=== PATIENT | male | born 1975 | race Hispanic/Latino ===

== ENCOUNTER 2017-03-10 08:08 | Day surgery (SDC) | payer OTHER ==
[2017-03-07 16:39] VITALS: BP 118/68
[2017-03-07 16:45] LABS: BASOPHILS % (AUTO) 0.2 % (0.0-5.0); EOSINOPHILS % (AUTO) 1.3 % (0.0-8.0); HEMATOCRIT 42.7 % (42-54); LYMPHOCYTES % (AUTO) 23.6 % (21.0-51.0); MEAN CORPUSCULAR HEMOGLOBIN 28.5 pg (27.0-33.0); MEAN CORPUSCULAR HGB CONC 33.4 g/dL (32.0-36.0); MEAN CORPUSCULAR VOLUME 85.3 fL (79-99); MONOCYTES % (AUTO) 6.3 % (3.0-13.0); NEUTROPHILS % (AUTO) 68.6 % (40.0-77.0); PLATELET COUNT (AUTO) 268 K/uL (130-400); RED CELL DISTRIBUTION WIDTH 13.2 % (11.0-15.5)
[2017-03-07 16:53] LABS: CREATININE 1.1 mg/dL (0.5-1.5); POTASSIUM 3.9 mmol/L (3.5-5.1)
[~2017-03-10] VITALS: Ht 165.1 cm; Wt 137.0 kg
[2017-03-10] VITALS (15 sets, daily range): BP systolic 117–148; BP diastolic 56–89
[~2017-03-10 08:08] MED LIST: LISI10TA7 PO; METF500T6 PO; TRAZ-147 PO
[2017-03-10] MEDS ORDERED: WATER FOR INJECTION,STERILE 20 ML VIAL ONE (09:14)
[2017-03-10] MEDS ORDERED: SODIUM CHLORIDE 0.9% 1000ML 1,000 ML IV ONE (09:15)
[2017-03-10] MEDS: CEFAZOLIN SODIUM 1 GM VIAL ONE ×2 (09:41→10:00)
[2017-03-10] MEDS ORDERED: PROPOFOL 10 MG/ML 20ML VIAL IV ONE (09:57)
[2017-03-10] MEDS ORDERED: SUCCINYLCHOLINE 200MG/10ML SYR ONE (09:57)
[2017-03-10] MEDS ORDERED: NEOSTIGMINE METHYLSULFATE 1MG/ML IV ONE (09:57)
[2017-03-10] MEDS ORDERED: MIDAZOLAM HCL 1 MG/ML 2ML VIAL ONE (09:57)
[2017-03-10] MEDS ORDERED: DEXAMETHASONE SOD PHOSPHATE 10MG/ML 1ML VIAL ONE (09:57)
[2017-03-10] MEDS ORDERED: GLYCOPYRROLATE 0.2 MG/ML 5 ML VIAL ONE (09:57)
[2017-03-10] MEDS ORDERED: ONDANSETRON HCL 4 MG/2 ML VIAL ONE (09:57)
[2017-03-10] MEDS ORDERED: FENTANYL CITRATE PF 50 MCG/1 ML 2ML VIAL ONE (09:58)
[2017-03-10] MEDS ORDERED: BUPIVACAINE/PF 0.5% 30ML VIAL ONE (10:50)
[2017-03-10] MEDS ORDERED: MEPERIDINE-PF 25 MG/ML SYG ONE ×2 (11:07→11:32)
[2017-03-10] MEDS ORDERED: MORPHINE SULFATE 10 MG/ML 1ML SYG ONE (11:17)
[2017-03-10] MEDS ORDERED: CEFAZOLIN SODIUM 1 GM VIAL IVP SCH (17:15)
== END 2017-03-10 13:15 | disposition home or self-care (01) ==
LOC: DAH 08:08
PROVIDERS: ATTEND Surgery
DX: K81.9 Cholecystitis, unspecified (principal); I10 Essential (primary) hypertension; E11.9 Type 2 diabetes mellitus without complications; E66.01 Morbid (severe) obesity due to excess calories; Z98.890 Other specified postprocedural states; Z68.43 Body mass index [BMI] 50.0-59.9, adult
CPT/HCPCS: 36415; 47562; 80048; 82948 ×2; 85025; 88304; A4649 ×2; A4930; A6206; A6207; C1769 ×4; J0330; J0690; J1100; J2175 ×2; J2250; J2270; J2405; J2704; J2710; J3010; J3490 ×2; J7030 ×2